=== PATIENT | male | born 1995 | race Caucasian/White ===

== ENCOUNTER 2016-05-24 11:06 | Observation (INO) | payer OTHER ==
[~2016-05-24] VITALS: Ht 175.3 cm; Wt 110.0 kg
[~2016-05-24 11:06] MED LIST: AMLODIPINE5 MG PO; DIVALPROEX SOD250 MG PO; IBUPROFEN600 MG PO; LITHIUM CARB300 MG PO; THORAZINE25 MG PO
[2016-05-24] MEDS ORDERED: HYDROXYZ PAM50 M1 PO (11:39)
[2016-05-24] MEDS ORDERED: CHLORPROMAZINE100 MG PO (11:40)
[2016-05-24] MEDS ORDERED: LITHIUM CARB150 MG PO (11:40)
[2016-05-24] MEDS ORDERED: KETOCONAZOLE21 EX (11:43)
[2016-05-24] MEDS ORDERED: DIVALPROEX SOD500 M2 PO (11:43)
[2016-05-24 12:16] LABS: URINE BILIRUBIN - DIPSTICK SMALL (NEGATIVE); URINE BLOOD DIPSTICK NEGATIVE (NEGATIVE); URINE CLARITY CLEAR; URINE COLOR YELLOW; URINE GLUCOSE - DIPSTICK NEGATIVE (NEGATIVE); URINE KETONE TRACE mg/dL (NEGATIVE); URINE LEUK ESTERASE NEGATIVE (NEGATIVE); URINE NITRITE - DIPSTICK NEGATIVE (Negative); URINE PROTEIN - DIPSTICK 30 mg/dL (NEG-TRACE); URINE SPECIFIC GRAVITY 1.025
[2016-05-24 12:16] LABS: HEMATOCRIT 38.8 % (39.0-50.0); HEMOGLOBIN 13.6 g/dl (14.0-18.0); IMMATURE GRANULOCYTES 0.2 % (0.0-1.0); MEAN CELL VOLUME 89.8 fL CALC (80.0-100.0); MEAN CORPUSCULAR HGB 31.5 pG CALC (26.0-32.0); MEAN CORPUSCULAR HGB CONC 35.1 g/L CALC (32.0-36.0); NEUT# 2.54 thou/uL (1.82-7.42); RED BLOOD COUNT 4.32 mill/uL (4.70-6.10); RED CELL DISTRI WIDTH 11.5 % (11.5-15.5)
[2016-05-24 12:25] LABS: URINE RBC 0-2 RBC/hpf (0-5)
[2016-05-24 12:26] LABS: BARBITURATES NEGATIVE (NEGATIVE); COCAINE NEGATIVE (NEGATIVE); METHADONE NEGATIVE (NEGATIVE); OXCYCODONE NEGATIVE (NEGATIVE); TETRAHYDROCANNABIONOL NEGATIVE (NEGATIVE); TRICYLIC ANTIDEPRESSANTS NEGATIVE (NEGATIVE); URINE SQUAMOUS EPITHELIAL CELL FEW EPI/hpf (0-FEW)
[2016-05-24 12:36] LABS: ALBUMIN 4.3 g/dL (3.2-5.0); ALKALINE PHOSPHATASE 75 u/l (38-126); ANION GAP 16 (6-22 (CALC)); BILIRUBIN, TOTAL 0.3 mg/dL (0.0-1.4); BUN 12 mg/dL (9-20); BUN/CREATININE RATIO 15 (12-20 (CALC)); CALCIUM 9.7 mg/dL (8.4-10.2); CARBON DIOXIDE 24 mmol/l (22-30); CHLORIDE 108 mmol/l (95-108); CREATININE 0.8 mg/dL (0.7-1.3); GFR > 60 ML/MIN (>=60 (CALC)); GFR FOR AFR.AMER. > 60 ML/MIN (>=60 (CALC)); GLUCOSE 95 mg/dL (75-110); MAGNESIUM 1.6 mg/dL (1.6-2.3); POTASSIUM 3.8 mmol/l (3.5-5.1); SGOT/AST 31 u/l (17-59); SGPT/ALT 60 u/l (21-72); SODIUM 145 mmol/l (137-146); TOTAL PROTEIN 6.9 g/dL (6.3-8.2)
[2016-05-24 12:37] LABS: ETHYL ALCOHOL 0 mg/dl (0-30)
[2016-05-24 16:05] VITALS: BP 153/72
[2016-05-24 19:00] VITALS: BP 152/86
[2016-05-24 19:15] VITALS: BP 170/73
[2016-05-24 19:30] VITALS: BP 198/86
[2016-05-24 19:45] VITALS: BP 190/83
== END 2016-05-24 20:05 | disposition short-term general hospital (02) | DRG 918 ==
LOC: ED 11:06 → ED-I 14:31 → ED 14:54 → ICU 14:55
PROVIDERS: Emergency Medicine; ADMIT Internal Medicine; ATTEND Internal Medicine
PROC: 0BH18EZ Insertion of Endotracheal Airway into Trachea, Via Natural or Artificial Opening Endoscopic (ICD-10-PCS; principal; 2016-05-24)
PROC: 5A1935Z Respiratory Ventilation, Less than 24 Consecutive Hours (ICD-10-PCS; 2016-05-24)
PROC: 0T9B70Z Drainage of Bladder with Drainage Device, Via Natural or Artificial Opening (ICD-10-PCS; 2016-05-24)
DX: T43.3X2A Poisoning by phenothiazine antipsychotics and neuroleptics, intentional self-harm, initial encounter (principal); R56.9 Unspecified convulsions; T42.6X2A Poisoning by other antiepileptic and sedative-hypnotic drugs, intentional self-harm, initial encounter; T39.312A Poisoning by propionic acid derivatives, intentional self-harm, initial encounter; J45.909 Unspecified asthma, uncomplicated; F31.9 Bipolar disorder, unspecified
CPT/HCPCS: J1953; J2060